=== PATIENT | male | born 1995 | race Caucasian/White ===

== ENCOUNTER 2018-05-25 05:24 | Day surgery (SDC) | payer BC, OTHER ==
[~2018-05-25] VITALS: Ht 175.3 cm; Wt 81.7 kg
[2018-05-25] MEDS ORDERED: LACTATED RINGERS 1,000 ML IV SCH (06:10)
[2018-05-25] MEDS ORDERED: IBUP-1223 PO (06:12)
[2018-05-25 06:32] VITALS: BP 116/74
[2018-05-25] MEDS ORDERED: FENTANYL PF 100 MCG/2ML ONE (06:55)
[2018-05-25] MEDS ORDERED: MIDAZOLAM 1 MG/ML, 2ML ONE (06:55)
[2018-05-25] MEDS ORDERED: GABAPENTIN 300 MG CAPSULE PO ONE (07:00)
[2018-05-25] MEDS ORDERED: ONDANSETRON ODT 8 MG PO ONE (07:00)
[2018-05-25] MEDS ORDERED: ACETAMINOPHEN 500 MG TABLET PO ONE (07:00)
[2018-05-25] MEDS ORDERED: ONDANSETRON 2MG/ML, 2ML ONE (07:19)
[2018-05-25] MEDS ORDERED: CEFAZOLIN 1,000 MG ONE (07:19)
[2018-05-25] MEDS ORDERED: DEXAMETHASONE 4 MG/ML, 1ML ONE (07:19)
[2018-05-25] MEDS ORDERED: BUPIVACAINE/PF 0.25% ONE ×2 (07:19)
[2018-05-25] MEDS ORDERED: PROPOFOL 10 MG/ML, 20ML ONE ×2 (07:19)
[2018-05-25] MEDS ORDERED: HYDROmorphone 2 MG/ML, 1ML IVPush PRN (08:00)
[2018-05-25] MEDS ORDERED: PROMETHAZINE 25 MG/ML, 1ML IV PRN (08:00)
[2018-05-25] MEDS ORDERED: ONDANSETRON ODT 8 MG PO PRN (08:00)
[2018-05-25] MEDS ORDERED: LORazepam 2 MG/ML, 1ML IVPush PRN (08:00)
[2018-05-25] MEDS ORDERED: FENTANYL PF 100 MCG/2ML IV PRN (08:00)
[2018-05-25] MEDS ORDERED: OXYcodone 5 MG/5 ML ORAL.SOL UDC PO PRN (08:00)
[2018-05-25] MEDS ORDERED: KETOROLAC 30 MG/1 ML ONE (11:14)
== END 2018-05-25 09:25 | disposition home or self-care (01) ==
LOC: OUT 05:24
PROVIDERS: ATTEND Orthopaedic Surgery Foot and Ankle Surgery
DX: S82.852A Displaced trimalleolar fracture of left lower leg, initial encounter for closed fracture (principal); S93.432A Sprain of tibiofibular ligament of left ankle, initial encounter; Z87.891 Personal history of nicotine dependence; Z72.89 Other problems related to lifestyle; X58.XXXA Exposure to other specified factors, initial encounter; Y93.89 Activity, other specified; Y92.89 Other specified places as the place of occurrence of the external cause; Y99.8 Other external cause status
CPT/HCPCS: 27822; 27829; 64445; 64447; 73600; 76000; C1713; J0690; J1100; J1885; J2250; J2405; J2704; J3010; J3490; J7120; Q0162